=== PATIENT | female | born 1950 | race American Indian/Alaskan Native ===

== ENCOUNTER 2018-05-11 10:53 | Day surgery (SDC) | payer MEDICARE ==
[2018-05-11] MEDS ORDERED: NACL 0.9% 1000 ML 1,000 ML IV SCH (13:00)
[2018-05-11] MEDS ORDERED: WATER FOR IRRIG STERILE IR ONE ×2 (13:21→13:56)
[2018-05-11] MEDS ORDERED: DIPRIVAN 10 MG/ML IV ONE (13:31)
[2018-05-11] MEDS ORDERED: XYLOCAINE 2% UROJET ONE (13:53)
[2018-05-11 14:31] VITALS: BP 151/63
--- NOTE | 2018-05-11 14:38 | Operative Report ---
Operative Report Operative Report: Date of procedure: 05/11/2018 Procedure: Colonoscopy with Polyp Ablation, Hot biopsy polypectomy Hemorrhoidal band ligation. Attending physician: Barry Mendoza MD C D Stripper: Barry Mendoza MD Indication: Patient is a 67-year-old female who presents for colorectal cancer screening. She also has had anorectal discomfort with symptomatic internal hemorrhoids with recurrent rectal bleeding. Patient has a past history of colon polyps. This procedure is done to evaluate patient so that treatment may be directed based on the findings. Consent: Informed consent was obtained after advising the patient and family regarding nature of this procedure, its indications, potential benefits as well as possible complications including but not limited to bleeding perforation and adverse reaction to medication, infection as well as other cardiopulmonary complications. An informed written and verbal consent was then obtained after due opportunity was provided for questions and answers. Monitoring: Patient was monitored continuously with pulse oximetry and electrocardiographic recordings as well as blood pressure recordings. Vital signs remained stable throughout this procedure with no untoward events. Preoperative assessment: Patient was assessed immediately prior to this procedure for capacity to tolerate monitored anesthesia care and moderate sedation as well as general anesthesia. Patient's ASA classification is 2, Mallampati class is 2, Hyomental distance is 3. Instrument: Discretix video colonoscope. Multiband ligator Medications: Propofol given intravenously in divided doses for details please refer to anesthesia records. Description of procedure: Patient was placed in the left lateral decubitus position after achieving sedation, a digital rectal examination was performed following which the colonoscope was introduced into the anal verge and advanced to the cecum which was identified by the cecal valve, the appendiceal orifice, as well as by the cecal strap and direct transillumination. The colonoscope was subsequently withdrawn with careful inspection of all mucosal surfaces. Patient tolerated this procedure well and was subsequently taken to the recovery room. The following findings were noted. Findings: The cecum was normal. ascending colon was normal. Transverse colon was normal. Descending colon was normal. Patient had diminutive polyp in the sigmoid colon which were removed by hot biopsy polypectomy. Patient also had multiple diminutive polyps in the rectum which were ablated. On the retroflex view at the anal verge patient had prominent friable large internal hemorrhoids. An upper endoscope was preloaded with the multiband ligator reintroduced into the rectum. 2% lidocaine gel was applied in the rectum. In the retroflex view, 5 bands were applied over the hemorrhoids above the dentate line. Patient tolerated procedure well no untoward events. Impression: Sigmoid colon polyps status post Hot biopsy polypectomy. Rectal polyp status post polypectomy ablation. Prominent internal hemorrhoids status post hemorrhoidal band ligation. Plan: Follow pathology report. Daily sitz baths. High-fiber diet. Patient to apply lidocaine ointment 5% per rectum every 6 hours as needed. Anusol HC suppositories per rectum every night. Patient to use stool softeners as needed. Miralax 17 g in 8 ounce glass of water has been prescribed. Tramadol 50 mg every 6 hours as needed for pain. Patient is scheduled for further outpatient follow-up. Patients further instructed that if she developes persistent bleeding and /or fevers to call the office immediately and present in the emergency room.
--- NOTE | 2018-05-11 14:42 | Discharge Summary ---
Short Stay Discharge Plan Activity: advance as tolerated Weight Bearing Status: Weight Bear as Tolerated Diet: regular Additional Instructions: Post Sedation D/C Instructions When you return home you may resume your regular diet unless otherwise directed. -Go directly home from the hospital and rest quietly. You may resume normal activities tomorrow. -Do NOT drive, return to work, operate any machinery or make any important personal or business decisions today. -Do NOT drink any alcohol or take nerve or sleeping drugs. They add to the effects of the medicine still present in your body. Follow up with Dr. Mendoza in 2 weeks to obtain pathology results and treatment plan. High Fiber Diet Daily sitz bath. Follow up with: ENID WRIGHT MD [Primary Care Provider] - 7 Days
== END 2018-05-11 10:54 | disposition home or self-care (01) ==
LOC: GIO 10:53
PROVIDERS: ATTEND Internal Medicine Gastroenterology
DX: K63.5 Polyp of colon (principal); K62.1 Rectal polyp; K62.5 Hemorrhage of anus and rectum; K64.8 Other hemorrhoids; I25.2 Old myocardial infarction; I10 Essential (primary) hypertension; E11.9 Type 2 diabetes mellitus without complications; Z87.891 Personal history of nicotine dependence; Z98.42 Cataract extraction status, left eye; Z98.41 Cataract extraction status, right eye; Z98.890 Other specified postprocedural states; Z88.8 Allergy status to other drugs, medicaments and biological substances; Z85.850 Personal history of malignant neoplasm of thyroid; Z79.899 Other long term (current) drug therapy; Z79.82 Long term (current) use of aspirin
CPT/HCPCS: 45384; 45388; 45398; 82962; 88305; J2704; J7030

== ENCOUNTER 2018-09-10 09:17 | Outpatient (CLI) | payer MEDICARE ==
--- NOTE | 2018-09-10 10:31 | Mammography Report ---
LEFT DIGITAL DIAGNOSTIC MAMMOGRAM : 09/10/18 09:17:00 CLINICAL: Recalled for asymmetry. COMPARISON:07/29/18 screening FINDINGS: Additional mammographic views were performed and are negative. IMPRESSION: Negative Mammogram. BI-RADS CATEGORY: 1 -- Negative RECOMMENDATION: Routine mammographic screening in one year. ACR BI-RADS MAMMOGRAPHIC CODES: 0 = Needs additional imaging evaluation; 1 = Negative; 2 = Benign; 3 = Probably benign; 4 = Suspicious; 5 = Malignant; 6 = Known biopsy-proven malignancy COMMENT: 1. Dense breast tissue, i.e., adenosis, fibrocystic changes, etc., may obscure an underlying neoplasm. 2. Approximately 10% of cancers are not detected with mammography. 3. A negative mammography report should not delay biopsy if a clinically suspicious mass is present. COMMENT: Patient follow-up letters are generated via our [employer] application.
== END 2018-09-10 09:18 | disposition home or self-care (01) ==
LOC: MAMMO 09:17
PROVIDERS: ATTEND Internal Medicine
DX: R92.8 Other abnormal and inconclusive findings on diagnostic imaging of breast (principal); Z68.30 Body mass index [BMI] 30.0-30.9, adult; Z87.891 Personal history of nicotine dependence